=== PATIENT | male | born 2000 | race Caucasian/White ===

== ENCOUNTER 2022-08-11 13:16 | Emergency (ER) | payer BC ==
[~2022-08-11] VITALS: Ht 190.5 cm; Wt 86.4 kg
[2022-08-11 13:24] VITALS: BP 144/81; TEMP 97.7
[2022-08-11 14:35] VITALS: PULSE 75
== END 2022-08-11 14:36 | disposition home or self-care (01) ==
LOC: COL.ER 13:16
DX: S02.2XXA Fracture of nasal bones, initial encounter for closed fracture (principal); Z28.310 Unvaccinated for COVID-19; W22.8XXA Striking against or struck by other objects, initial encounter; Y92.310 Basketball court as the place of occurrence of the external cause; Y93.67 Activity, basketball